=== PATIENT | male | born 1960 | race Two or more races ===

== ENCOUNTER → 2024-05-07 | Outpatient (CLI) | payer OTHER ==
--- NOTE | 2024-05-07 09:10 | DVH ---
CLINICAL INFORMATION: 63 years old, Male; rule out cancer. TECHNIQUE: Axial imaging was obtained through the brain without contrast. Coronal and sagittal refor matted images were obtained, reviewed, and stored. Images were reviewed in brain and bone windows. A ll CT scans at this medical facility are performed using dose modulation techniques as appropriate to a performed exam including the following: Automated exposure control was utilized; adjustment of the MA and/or KV according to patient size; and use of iterative reconstruction technique. CTDIvol = 69.24 mGy DLP = 1890.66 mGy-cm COMPARISON: None FINDINGS: There is no acute intracranial hemorrhage or extraaxial fluid collection. No mass effect o r midline shift. The ventricles and sulci are within normal limits in size for age. Basal cisterns a re patent. The calvarium is unremarkable. Paranasal sinuses and mastoid air cells are clear. IMPRESSION: 1. No CT evidence of acute intracranial abnormality. 2. No mass effect or midline shift visualized. 3. Limited evaluation for malignancy without IV contrast. If there is clinical suspicion for malignan cy, MRI without and with contrast could be considered.
--- NOTE | 2024-05-07 09:27 | DVH ---
CLINICAL INFORMATION: 63 years old, Male; RULE OUT CA. TECHNIQUE: Axial CT images of the neck soft tissues were obtained without IV contrast. Coronal and sa gittal reformatted images were obtained, stored, and reviewed. One or more of the following dose redu ction techniques were used: Automated exposure control. Adjustment of mA and/or kV according to patie nt size. CTDIvol = 69.1 mGy DLP = 1890.66 mGy-cm COMPARISON: None FINDINGS: Limited examination without IV contrast, particularly for malignancy the nasopharynx, oropharynx, hyp opharynx, and larynx appear grossly unremarkable. The parotid glands, submandibular glands, and thyro id gland appear unremarkable. Mildly prominent level 2 and 3 cervical lymph nodes measuring up to 1.6 x 1.2 cm, with normal reniform shape and fatty tania, likely reactive lymph nodes. Visualized portion s of the lung apices are unremarkable multilevel degenerative disc disease in the cervical spine with moderate disc space narrowing at C3-C4, C4-C5, and C5-C6 and associated endplate sclerosis and endpl ate spurring. IMPRESSION: 1. Limited examination without IV contrast. 2. Mildly prominent level 2 and 3 cervical lymph nodes, most likely reactive based on morphology. Co rrelate with clinical findings. 3. Otherwise, no suspicious abnormality identified on noncontrast enhanced CT.
== END | disposition home or self-care (01) ==
LOC: CT 08:17
DX: R59.0 Localized enlarged lymph nodes (principal); M50.31 Other cervical disc degeneration, high cervical region; M50.321 Other cervical disc degeneration at C4-C5 level; M48.02 Spinal stenosis, cervical region; M46.02 Spinal enthesopathy, cervical region
CPT/HCPCS: 70450; 70490